=== PATIENT | male | born 1950 | race African-American/Black ===

== ENCOUNTER 2020-06-03 21:08 | Observation (INO) ==
[2020-06-03] MEDS ORDERED: ASPIRIN 325 MG TABLET PO STA (22:15)
[2020-06-03 22:25] LABS: Basophils # 0.1 10*3/uL (0.0-0.2); Basophils % 0.5 % (0.0-0.8); Eosinophils # 0.2 10*3/uL (0.0-0.87); Hematocrit 38.7 VOL% (42.0-52.0); Hemoglobin 13.5 GM/DL (14.0-18.0); Immature Granulocytes % 0.3 %; Immature Granulocytes Absolute 0.03 #; Lymphocytes # 3.4 10*3/uL (1.4-4.0); Lymphocytes % 31.4 % (21.2-54.2); Mean Corpuscular HGB Conc 34.9 GM/DL (32-36); Mean Corpuscular Volume 93.9 FL (87-102); Mean Platelet Volume 10.2 FL (9.6-12.0); Monocytes % 6.2 % (1.7-12.7); Neutrophils % 59.6 % (38.7-73.9); Platelet Count 202 T/CUMM (130-400); Red Blood Count 4.12 MC/CUMM (3.8-5.5); Red Cell Distribution Width 11.9 % (9.3-17.3); White Blood Count 10.8 T/CUMM (4-12)
[2020-06-03 22:42] LABS: Albumin 3.8 G/DL (3.4-5.0); Bilirubin,Total 0.5 MG/DL (0.2-1.0); Calcium 8.9 MG/DL (8.5-10.1); Osmolality,Calculated 280.7 MOS/KG (273-304); Potassium 3.3 MMOL/L (3.5-5.1); Total Protein 8.1 G/DL (6.4-8.3)
[2020-06-03] MEDS ORDERED: POTASSIUM CHLORIDE 20 MEQ TABLET PO STA (23:10)
[2020-06-04] MEDS ORDERED: BACLOFEN 10 MG TABLET PO PRN (00:05)
[2020-06-04] MEDS ORDERED: DOCUSATE SODIUM 100 MG CAPSULE PO PRN (00:06)
[2020-06-04] MEDS ORDERED: hydrALAZINE 20 MG/1 ML VIAL IV PRN (00:06)
[2020-06-04] MEDS ORDERED: ONDANSETRON 4 MG/2 ML VIAL IV PRN (00:06)
[2020-06-04] MEDS ORDERED: GLUCAGON 1 MG VIAL IM PRN (00:06)
[2020-06-04] MEDS ORDERED: ACETAMINOPHEN 325 MG TABLET PO PRN (00:06)
[2020-06-04] MEDS ORDERED: DEXTROSE 50% 25 GM/50 ML VIAL IV PRN (00:06)
[2020-06-04] MEDS ORDERED: MORPHINE 4 MG/1 ML VIAL IV PRN (00:19)
[2020-06-04] MEDS ORDERED: NITROGLYCERIN SL 0.4 MG TABLET SL PRN (00:20)
[2020-06-04] MEDS ORDERED: ENOXAPARIN 40 MG/0.4 ML SYRINGE SUBCUT SCH (00:30)
[2020-06-04] MEDS ORDERED: SODIUM CHLORIDE 0.9% 1,000 ML IV SCH (02:00)
[2020-06-04 04:35] LABS: Basophils % 0.4 % (0.0-0.8); Eosinophils # 0.3 10*3/uL (0.0-0.87); Eosinophils % 2.8 % (0.00-10.9); Hematocrit 36.6 VOL% (42.0-52.0); Hemoglobin 12.4 GM/DL (14.0-18.0); Immature Granulocytes % 0.5 %; Immature Granulocytes Absolute 0.05 #; Lymphocytes # 3.5 10*3/uL (1.4-4.0); Mean Corpuscular HGB Conc 33.9 GM/DL (32-36); Mean Corpuscular Volume 96.1 FL (87-102); Neutrophils % 55.3 % (38.7-73.9); Platelet Count 208 T/CUMM (130-400); Red Blood Count 3.81 MC/CUMM (3.8-5.5); Red Cell Distribution Width 12.1 % (9.3-17.3); White Blood Count 10.1 T/CUMM (4-12)
[2020-06-04 04:53] LABS: Hypochromasia Slight; Platelet Estimate Adequate
[2020-06-04 05:04] LABS: Bilirubin,Urine Negative (Negative); Blood, Urine Negative (Negative); Glucose,Urine (UA) Negative (Negative); Ketones,Urine Negative (Negative); Mucus,Urine Occasional /LPF (Occasional); Nitrite,Urine Negative (Negative); Protein,Urine Negative; RBC,Urine 3 /HPF (0-4); Sperm,Urine Occasional /HPF (Negative); Urine Appearance CLEAR (Clear); Urine Color Yellow (Yellow); Urine Specific Gravity 1.018 (1.001-1.035); Urine Urobilinogen < 2.0 EU/DL (0.2-1.0)
[2020-06-04 05:11] LABS: Calcium 8.8 MG/DL (8.5-10.1); Osmolality,Calculated 277.7 MOS/KG (273-304); Potassium 3.9 MMOL/L (3.5-5.1); Risk Ratio 4.27; Thyroid Stimulating Hormone 1.25 uIU/ml (0.358-3.74); VLDL CHOLESTEROL 21.6 MG/DL
[2020-06-04] MEDS ORDERED: hydroCHLOROthiazide 12.5 MG CAPSULE PO SCH (09:00)
[2020-06-04] MEDS ORDERED: LOSARTAN 25 MG TABLET PO SCH (09:00)
[2020-06-04] MEDS ORDERED: hydrOXYzine HCL 10 MG TABLET PO SCH (09:00)
[2020-06-04] MEDS ORDERED: LOSARTAN 50 MG TABLET PO SCH ×3 (09:00→10:25)
[2020-06-04] MEDS ORDERED: hydrOXYzine HCL 25 MG TABLET ONE (09:35)
[2020-06-04] MEDS ORDERED: ASPIRIN EC 81 MG TABLET PO SCH (10:00)
[2020-06-04 10:26] VITALS: BP 137/80
== END 2020-06-04 10:19 | disposition home or self-care (01) ==
LOC: N.EDINP 21:08 → N.ED 21:08 → N.EDINP 06-04 10:21
PROVIDERS: ADMIT Family Medicine; ATTEND Family Medicine